=== PATIENT | female | born 1975 | race Caucasian/White ===

== ENCOUNTER → 2018-03-31 | Outpatient (CLI) | payer BC ==
[2018-03-31 16:09] LABS: Basophils % (A) 0 %; Eosinophils # (A) 0.1 k/uL (0-0.7); Eosinophils % (A) 2 %; HCT 41.6 % (34.0-46.0); HGB 13.9 gm/dL (11.4-16.0); Lymphocytes # (A) 1.8 k/uL (1.0-4.8); Lymphocytes % (A) 21 %; MCH 28.6 pg (25.0-35.0); MCHC 33.5 g/dL (31.0-37.0); MCV 85.4 fL (80.0-100.0); Mean Platelet Volume 7.9; Monocytes # (A) 0.4 k/uL (0-1.0); Monocytes % (A) 5 %; Neutrophils # (A) 6.4 k/uL (1.3-7.7); Neutrophils % (A) 72 %; Platelet Count 242 k/uL (150-450); RBC 4.86 m/uL (3.80-5.40); RDW 13.6 % (11.5-15.5); WBC 8.9 k/uL (3.8-10.6)
[2018-03-31 16:23] LABS: ALT 30 U/L (9-52); AST 20 U/L (14-36); Albumin 4.1 g/dL (3.5-5.0); Alkaline Phosphatase 71 U/L (38-126); Anion Gap 14 mmol/L; Blood Urea Nitrogen 10 mg/dL (7-17); Calcium 9.5 mg/dL (8.4-10.2); Carbon Dioxide 25 mmol/L (22-30); Chloride 104 mmol/L (98-107); Glucose 91 mg/dL (74-99); Potassium 4.2 mmol/L (3.5-5.1); Sodium 143 mmol/L (137-145); Total Bilirubin 0.8 mg/dL (0.2-1.3); Total Protein 6.5 g/dL (6.3-8.2)
== END | disposition home or self-care (01) ==
LOC: LABPAT 15:17
PROVIDERS: ATTEND Surgery
DX: Z01.812 Encounter for preprocedural laboratory examination (principal); Z98.890 Other specified postprocedural states
CPT/HCPCS: 36415; 80053; 85025; 93005

== ENCOUNTER → 2018-03-31 | Outpatient (CLI) | payer BC ==
--- NOTE | 2018-03-31 15:31 | P.HPBAR ---
Bariatric H&P - History & Physicial H&P Date: 03/31/18 History & Physicial: Visit/CC: Patient initial contact: Initial weight: Initial weight in pounds: Height: Initial BMI: Last weight: Current weight: Current weight in pounds: Current BMI: [place] body weight (based on NIH guidelines): Excess body weight loss: The patient is a 42 year-old F who presents for Bariatric Assessment. Patient presents today for lab band follow up her she's not been seen several years. Patient has had complaints of dysphagia. Her recent esophagram shows a dilated esophagus despite her band being empty. Past Medical History Past Medical History: GERD/Reflux History of Any Multi-Drug Resistant Organisms: None Reported Past Surgical History: Bariatric Surgery, Section Additional Past Surgical History / Comment(s): x2. lap band placed May 2002 (scheduled for removal on 04/02/18). Panniculectomy Past Anesthesia/Blood Transfusion Reactions: No Reported Reaction, Postoperative Nausea & Vomiting (PONV) Additional Past Anesthesia/Blood Transfusion Reaction / Comm: No transfusion to date Past Psychological History: Depression Smoking Status: Never smoker Past Alcohol Use History: Occasional Past Drug Use History: None Reported - Past Family History Mother Family Medical History: Hypertension Additional Family Medical History / Comment(s): Mother had lap band placed in 2001 Father Family Medical History: Coronary Artery Disease (CAD) Surgical - Exam - General well developed, no distress - Eyes PERRL - Respiratory normal expansion - Cardiovascular Rhythm: regular - Abdomen Abdomen: soft, non tender Bariatric Assessment & Plan Plan: Esophageal dilation with empty LAP-BAND. Patient will have her LAP-BAND removed. I discussed with her that she has the option of converting sleeve gastrectomy. The patient was scheduled for removal LAP-BAND this week. Bariatric Checklist Checklist: Plan: Checklist: EGD: 1. Hiatal hernia: 2. H. Pylori: HgbA1c: Vitamin D: Smoking: Never smoker Primary care physician referral: Psychiatry clearance: Cardiology clearance: Sleep study: Diet journal: VTE risk score: VTE risk level: Rehab needs at discharge:
[2018-03-31 15:41] VITALS: BP 128/87; PULSE 66; RESP 15; TEMP 99; BMI 42.5
== END | disposition home or self-care (01) ==
LOC: BARWHC3 14:31
PROVIDERS: ATTEND Surgery
DX: Z09 Encounter for follow-up examination after completed treatment for conditions other than malignant neoplasm (principal); K22.8 Other specified diseases of esophagus; K21.9 Gastro-esophageal reflux disease without esophagitis; F32.9 Major depressive disorder, single episode, unspecified; Z98.84 Bariatric surgery status; Z98.890 Other specified postprocedural states
CPT/HCPCS: 99201

== ENCOUNTER 2018-04-03 08:43 | Day surgery (SDC) | payer BC ==
[2018-04-02 11:48] VITALS: BMI 41.9
[~2018-04-03 08:43] MED LIST: DEXAMETHASONE SOD PHOSPHATE 10 MG/ML 1 ML VIAL IV ONE; LACTATED RINGERS 1,000 ML IV SCH; MIDAZOLAM 2 MG/2 ML VIAL IV PRN; MORPHINE SULFATE 4 MG/ML SYRINGE IV PRN; ONDANSETRON ODT 4 MG TAB PO ONE; ceFAZolin IN SWFI 2 GM/20 ML SYRINGE IVP ONE
[2018-04-03] MEDS ORDERED: BUPIVACAINE (PF) 0.25% 30 ML VIAL SQ ONE (09:12)
[2018-04-03] MEDS ORDERED: ONDANSETRON 4 MG/2 ML VIAL IVP ONE (09:26)
[2018-04-03] MEDS ORDERED: SCOPOLAMINE 1.5MG/72HR PATCH TRANSDERM ONE (09:27)
[2018-04-03] MEDS ORDERED: LIDOCAINE 1% 20 ML VIAL (10MG/ML) FOR IV START INTRADERMA ONE (09:27)
--- NOTE | 2018-04-03 09:39 | P.GSHP ---
History of Present Illness H&P Date: 04/03/18 Chief Complaint: Dysphagia, GERD This a 42-year-old female who's had LAP-BAND surgery performed over 10 years ago. Patient has an empty LAP-BAND. She has developed progressive dysphagia and GERD. Her recent upper GI shows a massively dilated esophagus. She presents today for removal of LAP-BAND system. Past Medical History Past Medical History: GERD/Reflux Additional Past Medical History / Comment(s): difficulty swallowing History of Any Multi-Drug Resistant Organisms: None Reported Past Surgical History: Bariatric Surgery, Section Additional Past Surgical History / Comment(s): x2. lap band placed May 2002 (scheduled for removal on 04/02/18). Panniculectomy Past Anesthesia/Blood Transfusion Reactions: No Reported Reaction, Postoperative Nausea & Vomiting (PONV) Additional Past Anesthesia/Blood Transfusion Reaction / Comment(s): No transfusion to date Smoking Status: Never smoker - Past Family History Mother Family Medical History: Hypertension Additional Family Medical History / Comment(s): Mother had lap band placed in 2001 Father Family Medical History: Coronary Artery Disease (CAD) Medications and Allergies Home Medications Medication Instructions Recorded Confirmed Type Pantoprazole Sodium [Protonix] 40 mg PO DAILY 03/31/18 04/03/18 History Sertraline [Zoloft] 100 mg PO DAILY 03/31/18 04/03/18 History Levonorgestrel [Mirena] 1 each IY DIRECTED 04/02/18 04/03/18 History Allergies Allergy/AdvReac Type Severity Reaction Status Date / Time Penicillins Allergy Severe Rash/Hives Verified 04/02/18 11:30 Surgical - Exam Vital Signs Temp Pulse Resp BP Pulse Ox 96.8 F L 57 L 16 139/72 96 04/03/18 09:15 04/03/18 09:15 04/03/18 09:15 04/03/18 09:15 04/03/18 09:15 - General well developed, no distress - Eyes PERRL - ENT normal pinna - Neck no masses - Respiratory normal expansion - Cardiovascular Rhythm: regular - Abdomen Abdomen: soft, non tender Hernia: none Assessment and Plan Assessment: Dysphagia Esophageal dilatation We'll perform removal of LAP-BAND system.
[2018-04-03] MEDS ORDERED: GLYCOPYRROLATE 0.2 MG/ML 2 ML VIAL ONE (09:58)
[2018-04-03] MEDS ORDERED: MIDAZOLAM 2 MG/2 ML VIAL ONE (09:58)
[2018-04-03] MEDS ORDERED: NEOSTIGMINE 1 MG/ML 10 ML VIAL ONE (09:58)
[2018-04-03] MEDS ORDERED: ROCURONIUM BROMIDE 10 MG/ML 10 ML VIAL IV ONE (09:58)
[2018-04-03] MEDS ORDERED: LABETALOL 5 MG/ML VIAL MDV ONE (09:58)
[2018-04-03] MEDS ORDERED: SUCCINYLCHOLINE CHLORIDE 100 MG/5 ML SYR IV ONE (09:58)
[2018-04-03] MEDS ORDERED: fentaNYL (PF) 50 MCG/ML 2 ML AMP ONE (09:58)
[2018-04-03] MEDS ORDERED: PROPOFOL 10 MG/ML 20 ML VIAL IV ONE (09:58)
[2018-04-03] MEDS ORDERED: diphenhydrAMINE 50 MG/ML 1 ML VIAL ONE (09:58)
[2018-04-03] MEDS ORDERED: LIDOCAINE 1% INJ 10MG/ML (20 ML MDV) ONE (09:58)
[2018-04-03] MEDS ORDERED: ePHEDrine SULFATE/0.9% NACL/PF 50 MG/5 ML SYRINGE IV ONE (09:58)
[2018-04-03 11:14] VITALS: TEMP 97.9
[2018-04-03] MEDS ORDERED: LACTATED RINGERS 1,000 ML IV ONE (11:42)
[2018-04-03] MEDS ORDERED: HYDROcodone/APAP 7.5-325MG 1 EACH TAB PO ONE (11:57)
[2018-04-03 12:26] VITALS: BP 152/85; PULSE 69; RESP 18
--- NOTE | 2018-04-08 16:32 | P.OP ---
Date of Procedure: 04/03/18 Preoperative Diagnosis: dysphagia Postoperative Diagnosis: dysphagia Procedure(s) Performed: removal of lap band system Anesthesia: KAELYN Surgeon: Roldan Kraft Estimated Blood Loss (ml): 10 Pathology: none sent Condition: stable Disposition: PACU Description of Procedure: the patient was placed on the operating table in the supine position. She received general anesthesia. She was then placed in the dorsal lithotomy position. Her abdomen was prepped and draped in the usual sterile fashion. The skin incision sites were anesthetized with 1% local Xylocaine. The skin at the LAP-BAND port site was incised left blade and using blunt and sharp dissection and electrocautery the LAP-BAND port was dissected free and removed. The Tube was then cut and then using a 5 mm optical trocar the peritoneal cavity was entered and the abdomen was then insufflated. Next the laparoscope was placed back into the cavity and then a 5 mm trochars placed in the right lateral and left lateral position. Another 5 mm trocar was placed in the right epigastric position the initial 5 mm trocar was exchanged for a 15 mm trocar. The adhesions to LAP-BAND device were then lysed using sharp dissection. And then using electrocautery the adhesions around the buckle were dissected free. The LAP-BAND device was then cut next to the buckle and then withdrawn from the stomach. The LAP-BAND device was thenthrough the 15 mm trocar site. The stomach and esophagus were examined. There is no evidencete of any injury. There is no sign of bleeding. The trochars withdrawn. Skin was closed with interrupted 3-0 Monocryl suture. Dermabond dressings applied. Patient sent to recovery in stable condition
== END 2018-04-03 12:56 | disposition home or self-care (01) ==
LOC: OR 08:43
PROVIDERS: ATTEND Surgery
DX: Z98.84 Bariatric surgery status (principal); K22.8 Other specified diseases of esophagus; Z82.49 Family history of ischemic heart disease and other diseases of the circulatory system; K21.9 Gastro-esophageal reflux disease without esophagitis; E66.9 Obesity, unspecified; Z68.41 Body mass index [BMI] 40.0-44.9, adult; F32.9 Major depressive disorder, single episode, unspecified; Z79.899 Other long term (current) drug therapy; Z88.0 Allergy status to penicillin
CPT/HCPCS: 81025; 43774; J2250; J1200; J1100; J2710; J2405; J2001; J3010; J0330; J2704; J0690

== ENCOUNTER → 2018-04-28 | Outpatient (CLI) | payer BC ==
[2018-04-28 16:53] VITALS: BP 130/81; PULSE 73; TEMP 98.9; BMI 43.4
--- NOTE | 2018-04-28 16:56 | P.HPBAR ---
Bariatric H&P - History & Physicial H&P Date: 04/28/18 History & Physicial: Visit/CC: lap band removal follow up Patient initial contact: Initial weight: Initial weight in pounds: Height: 5 ft 6 in Initial BMI: Last weight: Current weight: 122.289 kg Current weight in pounds: 269.60 Current BMI: 43.4 [place] body weight (based on NIH guidelines): 58.967 kg Excess body weight loss: The patient is a 42 year-old F who presents for Bariatric Assessment. She presents today for postop LAP-BAND follow-up. Patient had her band removed last week. She has gained 6 pounds since her band was removed. Past Medical History Past Medical History: GERD/Reflux Additional Past Medical History / Comment(s): difficulty swallowing History of Any Multi-Drug Resistant Organisms: None Reported Past Surgical History: Bariatric Surgery, Section Additional Past Surgical History / Comment(s): x2. lap band placed May 2002 (scheduled for removal on 04/02/18). Panniculectomy lap band removal - Past Anesthesia/Blood Transfusion Reactions: No Reported Reaction, Postoperative Nausea & Vomiting (PONV) Additional Past Anesthesia/Blood Transfusion Reaction / Comm: No transfusion to date Past Psychological History: Depression Smoking Status: Never smoker Past Alcohol Use History: Occasional Past Drug Use History: None Reported - Past Family History Mother Family Medical History: Hypertension Additional Family Medical History / Comment(s): Mother had lap band placed in 2001 Father Family Medical History: Coronary Artery Disease (CAD) Surgical - Exam Vital Signs Temp Pulse BP 98.9 F 73 130/81 04/28/18 16:48 04/28/18 16:48 04/28/18 16:48 - General well developed, no distress - Eyes PERRL - ENT normal pinna - Neck no masses - Respiratory normal expansion - Cardiovascular Rhythm: regular - Abdomen Incision sites clean dry intact. Abdomen: soft, non tender Bariatric Assessment & Plan Plan: Status post lap band removal. Patient will follow-up in one month. I warned the patient that she will most likely experience significant weakening over the next 6 months. Bariatric Checklist Checklist: Plan: Checklist: EGD: 1. Hiatal hernia: 2. H. Pylori: HgbA1c: Vitamin D: Smoking: Never smoker Primary care physician referral: Psychiatry clearance: Cardiology clearance: Sleep study: Diet journal: VTE risk score: VTE risk level: Rehab needs at discharge:
== END | disposition home or self-care (01) ==
LOC: BARWHC3 15:56
PROVIDERS: ATTEND Surgery
DX: Z48.815 Encounter for surgical aftercare following surgery on the digestive system (principal); Z98.84 Bariatric surgery status
CPT/HCPCS: 99211